=== PATIENT | female | born 1975 | race Two or more races ===

== ENCOUNTER 2019-04-09 12:22 | Emergency (ER) | payer OTHER ==
[~2019-04-09] VITALS: Ht 154.9 cm; Wt 72.6 kg
[2019-04-10] MEDS ORDERED: MEDROLPACK PO (02:23)
== END 2019-04-09 16:43 | disposition home or self-care (01) ==
LOC: ER 12:22
DX: M62.838 Other muscle spasm (principal)

== ENCOUNTER 2019-04-09 23:14 | Emergency (ER) | payer OTHER ==
[~2019-04-09] VITALS: Ht 154.9 cm; Wt 72.6 kg
[2019-04-10] MEDS ORDERED: MEDROLPACK PO (02:23)
== END 2019-04-10 02:31 | disposition home or self-care (01) ==
LOC: ER 23:14
DX: M54.2 Cervicalgia (principal); M62.830 Muscle spasm of back